=== PATIENT | female | born 1930 | race Asian ===

== ENCOUNTER 2016-04-29 16:00 | Inpatient (IN) | payer MEDICARE, OTHER ==
[~2016-04-29] VITALS: Ht 154.9 cm; Wt 53.7 kg
[2016-04-29 16:42] VITALS: BP 143/69
[2016-04-29 16:45] VITALS: BP 143/69
[2016-04-29] MEDS ORDERED: ACET-704 PO (17:38)
[2016-04-29] MEDS ORDERED: ALBU2.5V5 NEB (17:39)
[2016-04-29] MEDS ORDERED: CLOP75TA27 PO (17:40)
[2016-04-29] MEDS ORDERED: ALPR0.254 PO (17:40)
[2016-04-29] MEDS ORDERED: METF10002 PO (17:51)
[2016-04-29] MEDS ORDERED: LISI10TA2 PO (17:51)
[2016-04-29] MEDS ORDERED: INSU100C4 SQ (17:51)
[2016-04-29] MEDS ORDERED: NITR100C62 PO (17:52)
[2016-04-29] MEDS ORDERED: POLY17PO5 PO (17:53)
[2016-04-29] MEDS ORDERED: TRAM50TA PO (17:54)
[2016-04-29] MEDS ORDERED: TRAZ50TA15 PO (17:56)
[2016-04-29] MEDS ORDERED: FLUT1DIS IH (17:56)
[2016-04-29] MEDS ORDERED: METO50TA2 PO (17:57)
[2016-04-29] MEDS ORDERED: ALBUTEROL SULFATE 2.5 MG/3 ML NEBU. NEB PRN (18:00)
[2016-04-29] MEDS ORDERED: ACETAMINOPHEN/CODEINE 300/30MG TABLET PO PRN (18:00)
[2016-04-29 18:58] VITALS: BP 129/75
[2016-04-29] MEDS: ALBUTEROL SULFATE 2.5 MG/3 ML NEBU. NEB SCH (20:00)
[2016-04-29] MEDS ORDERED: BUDESONIDE 0.5 MG/2 ML NEBU NEB SCH (20:00)
[2016-04-29] MEDS: NITROFURANTOIN MONOHYD/M-CRYST 100 MG CAPSULE. PO SCH (20:10)
[2016-04-29] MEDS: METOPROLOL TART IMMED RELEASE 50 MG TABLET PO SCH (20:10)
[2016-04-29] MEDS: ALPRAZOLAM 0.25 MG TABLET PO PRN (20:10)
[2016-04-29] MEDS: TRAMADOL 50 MG TABLET. PO PRN (20:10)
[2016-04-29] MEDS: traZODone 50 MG TABLET. PO SCH (20:10)
[2016-04-29] MEDS ORDERED: NON FORMULARY ITEM (Fluticasone/Salmeterol (Advair 100-50 Diskus) 1 PUFF) IH SCH (21:00)
[2016-04-30 04:52] VITALS: BP 164/83
[2016-04-30] MEDS: ALBUTEROL SULFATE 2.5 MG/3 ML NEBU. NEB SCH ×4 (05:41→20:00)
[2016-04-30] MEDS ORDERED: NON FORMULARY ITEM (Insulin Aspart (Novolog) 1 UNIT) SQ SCH (07:30)
[2016-04-30] MEDS: INSULIN ASPART 300 UNITS/3 ML INSULN.PEN SQ SCH ×2 (07:52→12:00)
[2016-04-30] MEDS: METFORMIN 500 MG TABLET. PO SCH ×2 (09:13→16:11)
[2016-04-30] MEDS: POLYETHYLENE GLYCOL 3350 17 GM PACKET. PO SCH (09:13)
[2016-04-30] MEDS: TRAMADOL 50 MG TABLET. PO PRN (09:13)
[2016-04-30] MEDS: CLOPIDOGREL BISULFATE 75 MG TABLET PO SCH (09:13)
[2016-04-30] MEDS: NITROFURANTOIN MONOHYD/M-CRYST 100 MG CAPSULE. PO SCH (09:13)
[2016-04-30] MEDS: LIDOCAINE (700MG/PATCH) PATCH. TD SCH (09:14)
[2016-04-30] MEDS: LISINOPRIL 10 MG TABLET PO SCH (09:14)
[2016-04-30] MEDS: METOPROLOL TART IMMED RELEASE 50 MG TABLET PO SCH ×2 (09:14→19:56)
[2016-04-30] MEDS ORDERED: BUDESONIDE 0.5 MG/2 ML NEBU NEB PRN (09:30)
[2016-04-30] MEDS ORDERED: POLYETHYLENE GLYCOL 3350 17 GM PACKET. PO PRN (11:00)
[2016-04-30] MEDS: ACETAMINOPHEN 650 MG TABLET.ER PO SCH ×2 (13:23→19:55)
--- NOTE | 2016-04-30 15:58 | HP ---
ADMIT DATE: 04/30/2016 DETENTION SWING BED HISTORY AND PHYSICAL REASON FOR ADMISSION: HISTORY OF PRESENT ILLNESS: This is an 86-year-old female, who was transferred from [facility] after being admitted after sustaining a fall with right-sided fractures of fourth and fifth ribs. These were nondisplaced. The patient was in significant pain and has had some difficult with mobility since fracturing her ribs and is here for PT, OT and pain management. PAST MEDICAL HISTORY: Coronary artery disease, status post PCI, status post pacemaker for sick sinus syndrome, mild hypertension, cognitive impairment, diabetes. ALLERGIES: None. FAMILY HISTORY: She has a daughter with coronary artery disease. SOCIAL HISTORY: Nonsmoker alcohol. MEDICATIONS: Reviewed and reconciled by myself. REVIEW OF SYSTEMS: Positive for weakness, impaired mobility, right-sided pain, otherwise negative. OBJECTIVE: VITAL SIGNS: Blood pressure 164/83, pulse 60, respirations 16, pulse ox 95% on room air. Height 61 inches, weight 119.06 pounds. GENERAL: Frail elderly 86-year-old, who is in mild pain. Her hearing is slightly impaired. HEENT: Her eyes were clear. Her nose was patent. Her throat was clear. NECK: Supple. LUNGS: Clear to auscultation. CARDIOVASCULAR: Regular rhythm and rate. ABDOMEN: Soft, nontender. EXTREMITIES: Without edema. SKIN: The patient has large bruise on the right side of her forehead that is and the right sided area around the fourth and fifth ribs is bruised and very tender. IMAGING: CAT scan of the chest shows nondisplaced fourth and fifth rib fractures on the right. ASSESSMENT: 1. Status post mechanical fall with fourth and fifth rib fractures. 2. Weakness. 3. Coronary artery disease, status post PCI. 4. Status post pacemaker for sick sinus. 5. Mild hypertension. 6. Pain management. 7. Significant fall risk. 8. Physical disability. PLAN: Admit to swing bed and start rehab. We encouraged to do as much for herself. It will be slow process. I did spend about 30 minutes discussing her case with her as well as her daughter. LALO OWENS DO DR: RAMÍREZ/sandy JOB#: [id number] / [id number]
[2016-04-30] MEDS: ACETAMINOPHEN/CODEINE 300/30MG TABLET PO SCH (16:00)
[2016-04-30] MEDS: ONDANSETRON ODT 4 MG TAB.RAPDIS PO PRN (16:42)
[2016-04-30 18:25] VITALS: BP 155/75
[2016-04-30] MEDS: traZODone 50 MG TABLET. PO SCH (19:55)
[2016-04-30] MEDS: METHYL SALICYLATE/MENTHOL TOPICAL OINTMENT 29GM TUBE. TP SCH (20:02)
[2016-05-01] MEDS: ACETAMINOPHEN 650 MG TABLET.ER PO SCH ×3 (05:06→21:23)
[2016-05-01] MEDS: ALBUTEROL SULFATE 2.5 MG/3 ML NEBU. NEB SCH ×2 (08:00→12:00)
[2016-05-01] MEDS: LIDOCAINE (700MG/PATCH) PATCH. TD SCH (08:17)
[2016-05-01] MEDS: TRAMADOL 50 MG TABLET. PO PRN ×2 (08:17→11:50)
[2016-05-01] MEDS: METFORMIN 500 MG TABLET. PO SCH ×3 (08:18→17:12)
[2016-05-01] MEDS: CLOPIDOGREL BISULFATE 75 MG TABLET PO SCH (08:18)
[2016-05-01] MEDS: METOPROLOL TART IMMED RELEASE 50 MG TABLET PO SCH ×2 (08:18→20:10)
[2016-05-01] MEDS: POLYETHYLENE GLYCOL 3350 17 GM PACKET. PO SCH (08:19)
[2016-05-01] MEDS: LISINOPRIL 10 MG TABLET PO SCH (08:19)
[2016-05-01] MEDS: ACETAMINOPHEN/CODEINE 300/30MG TABLET PO SCH (08:19)
[2016-05-01 08:57] VITALS: BP 165/65
[2016-05-01] MEDS: ONDANSETRON ODT 4 MG TAB.RAPDIS PO PRN (08:58)
--- NOTE | 2016-05-01 13:10 | RAD ---
Abdomen, 2 views, 05/01/2016: History: Nausea and vomiting, right-sided pain after a fall Gas is present in scattered loops of large and small bowel without significant bowel distention. There are small scattered air-fluid levels. The appearance suggests a mild ileus. No free air is present in the abdomen. There is no evidence of organomegaly. Surgical clips are present in the right upper quadrant. Aortoiliac calcific plaquing is present. Moderate degenerative change is present in the spine. The visualized portions of the lung bases demonstrate a transvenous pacemaker with 2 leads extending into the heart. A coronary artery stent overlies the left side of the heart. There is blunting of the right lateral costophrenic angle compatible with a small amount of pleural fluid versus scarring. There is a fracture of the posterior aspect of the right sixth rib. IMPRESSION: 1. Scattered air-fluid levels in the GI tract suggesting a mild ileus. 2. Right sixth rib fracture. 3. Probable small right pleural effusion. 4. Chest radiographs are suggested for further evaluation, if not already performed elsewhere.
[2016-05-01] MEDS ORDERED: BISACODYL 10 MG SUPP.RECT PR PRN (13:45)
[2016-05-01 14:28] VITALS: BP 158/67
[2016-05-01] MEDS: traZODone 50 MG TABLET. PO SCH (20:09)
[2016-05-01] MEDS: METHYL SALICYLATE/MENTHOL TOPICAL OINTMENT 29GM TUBE. TP SCH (20:10)
[2016-05-01 20:23] VITALS: BP 140/83
[2016-05-02] MEDS: ACETAMINOPHEN 650 MG TABLET.ER PO SCH ×3 (05:32→21:05)
[2016-05-02 05:48] LABS: BASO % 0 % (0-3); EOS # 0.6 x10^3/uL (0.0-0.7); EOS % 7 % (0-3); HEMATOCRIT 29.7 % (36.0-47.0); HEMOGLOBIN 9.9 g/dL (12.0-15.5); LYMPH # 1.4 x10^3/uL (1.0-4.8); LYMPH % 15 % (24-48); MEAN CORPUSCULAR HEMOGLOBIN 28 pg (25-35); MEAN CORPUSCULAR HGB CONC 33 g/dL (31-37); MEAN CORPUSCULAR VOLUME 85 fL (79-100); MONO # 0.7 x10^3/uL (0.0-1.1); MONO % 8 % (0-9); NEUT # 6.3 x10^3uL (1.8-7.7); NEUT % 70 % (31-73); PLATELET COUNT 293 x10^3/uL (140-400); RED BLOOD COUNT 3.49 x10^6/uL (3.50-5.40); RED CELL DISTRIBUTION WIDTH 17.2 % (11.5-14.5); WHITE BLOOD COUNT 8.9 x10^3/uL (4.0-11.0)
[2016-05-02 06:02] LABS: ALBUMIN 2.6 g/dL (3.4-5.0); ALBUMIN/GLOBULIN RATIO 0.8 (1.0-1.7); CALCIUM 8.3 mg/dL (8.5-10.1); CREATININE 1.3 mg/dL (0.6-1.0); GFR 38.7; MAGNESIUM 1.9 mg/dL (1.8-2.4); POTASSIUM 4.1 mmol/L (3.5-5.1); TOTAL BILIRUBIN 0.4 mg/dL (0.2-1.0)
[2016-05-02] MEDS: METFORMIN 500 MG TABLET. PO SCH ×2 (08:00→17:00)
[2016-05-02 09:00] VITALS: BP 176/90
[2016-05-02] MEDS: POLYETHYLENE GLYCOL 3350 17 GM PACKET. PO SCH (09:03)
[2016-05-02] MEDS: LISINOPRIL 10 MG TABLET PO SCH (09:08)
[2016-05-02] MEDS: TRAMADOL 50 MG TABLET. PO PRN (09:09)
[2016-05-02] MEDS: METOPROLOL TART IMMED RELEASE 50 MG TABLET PO SCH ×2 (09:10→21:05)
[2016-05-02] MEDS: CLOPIDOGREL BISULFATE 75 MG TABLET PO SCH (09:11)
[2016-05-02] MEDS: LIDOCAINE (700MG/PATCH) PATCH. TD SCH (09:12)
[2016-05-02] MEDS: ALPRAZOLAM 0.25 MG TABLET PO PRN (12:30)
[2016-05-02 19:08] VITALS: BP 176/70
[2016-05-02] MEDS: METHYL SALICYLATE/MENTHOL TOPICAL OINTMENT 29GM TUBE. TP SCH (21:00)
[2016-05-02 21:03] VITALS: BP 154/66
[2016-05-02] MEDS: traZODone 50 MG TABLET. PO SCH (21:05)
[2016-05-03] MEDS: ACETAMINOPHEN 650 MG TABLET.ER PO SCH ×3 (05:39→23:28)
[2016-05-03 05:52] VITALS: BP 180/71
[2016-05-03] MEDS: LIDOCAINE (700MG/PATCH) PATCH. TD SCH (07:52)
[2016-05-03] MEDS: CLOPIDOGREL BISULFATE 75 MG TABLET PO SCH (07:52)
[2016-05-03] MEDS: METOPROLOL TART IMMED RELEASE 50 MG TABLET PO SCH ×2 (07:52→20:32)
[2016-05-03] MEDS: METFORMIN 500 MG TABLET. PO SCH ×2 (07:52→17:11)
[2016-05-03] MEDS: POLYETHYLENE GLYCOL 3350 17 GM PACKET. PO SCH (07:52)
[2016-05-03] MEDS: LISINOPRIL 10 MG TABLET PO SCH (07:53)
--- NOTE | 2016-05-03 11:56 | PDOC ---
PROGRESS NOTES Assessment 1. Status post mechanical fall with fourth and fifth rib fractures: Pt not getting adequate rosado relief, will try taking the tramadol again since she has been having BM's and maybe won't get as nauseated. 3. Coronary artery disease, status post PCI: Pt denies CP or SOA. 4. Status post pacemaker for sick sinus: Stable. 5. HTN: BP was in 170's this morning, pt's daughter states pt usually runs in 150's and they prefer her there. We suspect pt had BP measured after using bathroom, continue to monitor, and if stays high, will adjust BP meds. 6. Pain management: See above. 7. Significant fall risk. 8. Physical disability. 9. Moderate-severe PEM: Continue nutritional supplements. 10. DVT proph: Pt ambulating frequently. Low risk for DVT. 11. Anemia: Recheck Hgb in AM. Problems: Plan of Care: see other orders Subjective Pt seen on rounds w/ her family present. Pt still not getting pain relief. Bowels are moving better. Denies CP or SOA. Wearing lidocaine patch. Denies dizziness or JOLLEY. Objective Vital Signs Date Time Temp Pulse Resp B/P Pulse Ox O2 Delivery O2 Flow Rate FiO2 05/03/16 08:00 Room Air 05/03/16 07:53 60 180/71 05/03/16 05:52 98.4 20 96 Intake and Output 05/03/16 07:00 Intake Total 1800 ml Balance 1800 ml Intake Oral 1800 ml # Voids 7 # Bowel Movements 3 Abdomen: Normal bowel sounds, Soft, No tenderness Heart: Regular rate, Normal S1, Normal S2 Extremities: No edema General: Alert, Cooperative, No acute distress HEENT: PERRLA, EOMI, Mucous membr. moist/pink Lungs: Clear to auscultation, Normal air movement Neck: No JVD Neuro: Normal tone, Other (No focal neurologic abnormalities.) Skin: No rashes (mild swelling noted in area of rib injury, no sign of infection. Likely small hematoma.) Review of Relevant I have reviewed the following items kwan (where applicable) has been applied. Labs Laboratory Tests Test 05/02/16 05:32 05/02/16 08:50 05/03/16 07:17 White Blood Count 8.9x10^3/uL (4.0-11.0) Red Blood Count 3.49x10^6/uL (3.50-5.40) Hemoglobin 9.9g/dL (12.0-15.5) Hematocrit 29.7% (36.0-47.0) Mean Corpuscular Volume 85fL (79-100) Mean Corpuscular Hemoglobin 28pg (25-35) Mean Corpuscular Hemoglobin Concent 33g/dL (31-37) Red Cell Distribution Width 17.2% (11.5-14.5) Platelet Count 293x10^3/uL (140-400) Neutrophils (%) (Auto) 70% (31-73) Lymphocytes (%) (Auto) 15% (24-48) Monocytes (%) (Auto) 8% (0-9) Eosinophils (%) (Auto) 7% (0-3) Basophils (%) (Auto) 0% (0-3) Neutrophils # (Auto) 6.3x10^3uL (1.8-7.7) Lymphocytes # (Auto) 1.4x10^3/uL (1.0-4.8) Monocytes # (Auto) 0.7x10^3/uL (0.0-1.1) Eosinophils # (Auto) 0.6x10^3/uL (0.0-0.7) Basophils # (Auto) 0.0x10^3/uL (0.0-0.2) Sodium Level 136mmol/L (136-145) Potassium Level 4.1mmol/L (3.5-5.1) Chloride Level 100mmol/L (98-107) Carbon Dioxide Level 29mmol/L (21-32) Anion Gap 7 (6-14) Blood Urea Nitrogen 15mg/dL (7-20) Creatinine 1.3mg/dL (0.6-1.0) Estimated GFR (Cockcroft-Gault) 38.7 BUN/Creatinine Ratio 12 (6-20) Glucose Level 98mg/dL (70-99) Calcium Level 8.3mg/dL (8.5-10.1) Magnesium Level 1.9mg/dL (1.8-2.4) Total Bilirubin 0.4mg/dL (0.2-1.0) Aspartate Amino Transf (AST/SGOT) 37U/L (15-37) Alanine Aminotransferase (ALT/SGPT) 65U/L (14-59) Alkaline Phosphatase 139U/L (46-116) Total Protein 6.0g/dL (6.4-8.2) Albumin 2.6g/dL (3.4-5.0) Albumin/Globulin Ratio 0.8 (1.0-1.7) Glucose (Fingerstick) 114mg/dL (70-99) 83mg/dL (70-99) Medications Current Medications Acetaminophen/ Codeine Phosphate (Tylenol #3) 1 tab PRN Q4HRS PRN PO PAIN Last administered on 04/30/16 11:47; Start 04/29/16 at 18:00; Stop 04/30/16 at 16:00 ; Status DC Albuterol Sulfate (Ventolin) 2.5 mg PRN Q6HRS PRN NEB SHORTNESS OF BREATH; Start 04/29/16 at 18:00 Alprazolam (Xanax) 0.25 mg PRN DAILY PRN PO ANXIETY Last administered on 12:30; Start 04/29/16 at 18:00 Clopidogrel Bisulfate (Plavix) 75 mg DAILY PO Last administered on 05/03/16 07 :52; Start 04/30/16 at 09:00 Lisinopril (Prinivil) 10 mg DAILY PO Last administered on 05/03/16 07:53; Start 04/30/16 at 09:00 Metoprolol Tartrate (Lopressor) 50 mg BID PO Last administered on 05/03/16 07: 52; Start 04/29/16 at 21:00 Nitrofurantoin Macrocrystals (Macrobid) 100 mg BID PO Last administered on 04/30 09:13; Start 04/29/16 at 21:00; Stop 04/30/16 at 10:01; Status DC Polyethylene Glycol (miraLAX) 17 gm DAILY PO Last administered on 05/03/16 07: 52; Start 04/30/16 at 09:00 Tramadol HCl (Ultram) 50 mg PRN Q6HRS PRN PO PAIN Last administered on 09:09; Start 04/29/16 at 18:00 Trazodone HCl (Desyrel) 50 mg QHS PO Last administered on 05/02/16 21:05; Start 04/29/16 at 21:00 Non-Formulary Medication 1 puff BID IH ; Start 04/29/16 at 21:00; Stop 04/29/16 at 21:00; Status DC Non-Formulary Medication 1 unit TIDBFRMEAL SQ ; Start 04/30/16 at 07:30; Stop at 07:30; Status DC Metformin HCl (Glucophage) 1,000 mg BIDWMEALS PO Last administered on 07:52; Start 04/30/16 at 08:00 Insulin Aspart (Novolog) 0-5 UNITS TIDWMEALS SQ ; Start 04/30/16 at 08:00; Stop 04/30/16 at 12:20; Status DC Budesonide (Pulmicort) 0.5 mg RTBID NEB Last administered on 04/29/16 20:00; Start 04/29/16 at 20:00; Stop 04/30/16 at 09:25; Status DC Albuterol Sulfate (Ventolin) 2.5 mg RTQID NEB Last administered on 04/30/16 05 :41; Start 04/29/16 at 20:00; Stop 05/01/16 at 16:28; Status DC Lidocaine (Lidoderm) 1 patch DAILY TD Last administered on 05/03/16 07:52; Start 04/30/16 at 09:15 Budesonide (Pulmicort) 0.5 mg PRN BID PRN NEB wheezing; Start 04/30/16 at 09:30 Acetaminophen (Tylenol Arthritis) 650 mg Q8HRS PO Last administered on 05:39; Start 04/30/16 at 14:00 Polyethylene Glycol (miraLAX) 17 gm PRN DAILY PRN PO CONSTIPATION; Start at 11:00 Multi-Ingredient Ointment (Analgesic [place]) 1 lilia HS TP Last administered on 21:00; Start 04/30/16 at 21:00 Acetaminophen/ Codeine Phosphate (Tylenol #3) 1 tab BID94 PO Last administered on 05/01/16 08:19; Start 04/30/16 at 16:00; Stop 05/01/16 at 16:24; Status DC Ondansetron HCl (Zofran Odt) 4 mg PRN Q6HRS PRN PO NAUSEA/VOMITING Last administered on 05/01/16 08:58; Start 04/30/16 at 16:30 Bisacodyl (Dulcolax Supp) 10 mg PRN DAILY PRN SC CONSTIPATION Last administered on 05/01/16 13:56; Start 05/01/16 at 13:45 Active Scripts Active Reported Metoprolol Tartrate 50 Mg Tablet 1 Tab PO BID Advair 100-50 Diskus (Fluticasone/Salmeterol) 1 Each Disk.w.dev 1 Puff IH BID Trazodone Hcl 50 Mg Tablet 1 Tab PO QHS Tramadol Hcl (Tramadol HCl) 50 Mg Tablet 50 Mg PO PRN Q6HRS PRN Miralax (Polyethylene Glycol 3350) 17 Gm Powd.pack 1 Packet PO DAILY Macrobid 100 Mg Capsule (Nitrofurantoin Monohyd/M-Cryst) 100 Mg Capsule 1 Cap PO BID 4 Days Metformin Hcl 1,000 Mg Tablet 1 Tab PO BIDWMEALS Lisinopril 10 Mg Tablet 1 Tab PO DAILY Novolog (Insulin Aspart) 100 Unit/1 Ml Cartridge 1 Unit SQ TIDBFRMEAL Plavix (Clopidogrel Bisulfate) 75 Mg Tablet 1 Tab PO DAILY Alprazolam 0.25 Mg Tablet 1 Tab PO DAILY PRN Albuterol Sulfate Neb Soln (Albuterol Sulfate) 2.5 Mg/3 Ml Vial.neb 2.5 Mg NEB PRN Q6HRS PRN Tylenol With Codeine #3 Tablet (Acetaminophen With Codeine) 1 Each Tablet 1 Each PO PRN Q4HRS PRN Vitals/I & O Vital Sign - Last 24 Hours 05/02/16 05/02/16 05/02/16 05/02/16 19:08 19:30 21:03 21:05 Temp 98.7 Pulse 60 62 62 Resp 20 20 B/P 176/70 154/66 154/66 Pulse Ox 96 95 O2 Delivery Room Air Room Air Room Air 05/03/16 05/03/16 05/03/16 05/03/16 05:52 07:52 07:53 08:00 Temp 98.4 Pulse 60 60 60 Resp 20 B/P 180/71 180/71 180/71 Pulse Ox 96 O2 Delivery Room Air Room Air Intake and Output 05/02/16 05/02/16 05/03/16 15:00 23:00 07:00 Intake Total 200 ml 850 ml 750 ml Balance 200 ml 850 ml 750 ml PRUDENCE LEMUS MD May 03, 2016 11:56
[2016-05-03] MEDS: TRAMADOL 50 MG TABLET. PO PRN (12:36)
[2016-05-03 19:00] VITALS: BP 162/78
[2016-05-03] MEDS: METHYL SALICYLATE/MENTHOL TOPICAL OINTMENT 29GM TUBE. TP SCH (20:32)
[2016-05-03] MEDS: traZODone 50 MG TABLET. PO SCH (20:32)
[2016-05-04] MEDS: TRAMADOL 50 MG TABLET. PO PRN ×3 (01:30→16:07)
[2016-05-04 05:25] VITALS: BP 185/93
[2016-05-04] MEDS: ACETAMINOPHEN 650 MG TABLET.ER PO SCH ×3 (06:38→19:21)
[2016-05-04] MEDS: LIDOCAINE (700MG/PATCH) PATCH. TD SCH (08:06)
[2016-05-04] MEDS: METFORMIN 500 MG TABLET. PO SCH ×2 (08:07→16:07)
[2016-05-04] MEDS: METOPROLOL TART IMMED RELEASE 50 MG TABLET PO SCH ×2 (08:07→19:21)
[2016-05-04] MEDS: POLYETHYLENE GLYCOL 3350 17 GM PACKET. PO SCH (08:07)
[2016-05-04] MEDS: CLOPIDOGREL BISULFATE 75 MG TABLET PO SCH (08:08)
[2016-05-04] MEDS: LISINOPRIL 10 MG TABLET PO SCH (08:09)
[2016-05-04 19:17] VITALS: BP 188/78
[2016-05-04] MEDS: traZODone 50 MG TABLET. PO SCH (19:21)
[2016-05-04] MEDS: METHYL SALICYLATE/MENTHOL TOPICAL OINTMENT 29GM TUBE. TP SCH (19:21)
[2016-05-05] MEDS: ONDANSETRON ODT 4 MG TAB.RAPDIS PO PRN (04:26)
[2016-05-05] MEDS: ACETAMINOPHEN 650 MG TABLET.ER PO SCH (04:26)
[2016-05-05 04:38] VITALS: BP 185/79
[2016-05-05] MEDS: POLYETHYLENE GLYCOL 3350 17 GM PACKET. PO SCH (09:09)
[2016-05-05] MEDS: LIDOCAINE (700MG/PATCH) PATCH. TD SCH (09:09)
[2016-05-05] MEDS: METOPROLOL TART IMMED RELEASE 50 MG TABLET PO SCH (09:10)
[2016-05-05] MEDS: METFORMIN 500 MG TABLET. PO SCH (09:10)
[2016-05-05] MEDS: CLOPIDOGREL BISULFATE 75 MG TABLET PO SCH (09:10)
[2016-05-05] MEDS: TRAMADOL 50 MG TABLET. PO PRN (09:10)
[2016-05-05] MEDS: LISINOPRIL 10 MG TABLET PO SCH (09:10)
[2016-05-05 10:14] VITALS: BP 179/82
[2016-05-05] MEDS ORDERED: ONDA4TAB10 SL (13:30)
[2016-05-05] MEDS ORDERED: LIDO700A4 TP (13:43)
--- NOTE | 2016-05-05 20:11 | DS ---
DATE OF DISCHARGE: 05/05/2016 HOSPITAL COURSE: The patient is an 86-year-old [place] Portuguese female patient who apparently has fallen at home sustaining right-sided fracture of the 4th and right 5th ribs. She was evaluated at [facility] and from there she was transferred to [facility] to be on a swing bed to continue with pain management as well as physical and occupational therapy. She did well, has been ambulating with a walker. Her pain was little bit controlled. The patient insisted that she wants to go home and has not been participating with physical and occupational therapy. PHYSICAL EXAMINATION: GENERAL: When I saw her this afternoon, she was resting slightly propped up in bed, pale, but no jaundice, cyanosis, or thyromegaly. No jugular venous distention. No limb edema. VITAL SIGNS: Her heart rate was 64, blood pressure was 79/82, temperature was 98.3, respiratory rate was 16 and oxygen saturation was 99%. HEAD, EYES, EARS, NOSE AND THROAT: Showed normocephalic, atraumatic. NECK: Supple. HEART: Showed normal first and second heart sounds with no gallop, rub or murmur. CHEST: Clear to auscultation. No crepitation or rhonchi. ABDOMEN: Slightly distended, soft, nontender. No guarding or rigidity. No organomegaly. Hernial orifices intact. Bowel sounds normal. NEUROLOGIC: She was seen to be demented; however, she has no localizing sign. All her cranial nerves intact. She moves extremities without difficulty. She apparently ambulates with a walker with minimal assistance. Her intake over the last 24 hours was 1100, no output was recorded. LABORATORY DATA: Her most recent lab work showed a white cell count of 8900, hemoglobin 10, hematocrit 30, MCV 85 and platelet count 293,000. Her chemistry showed a serum sodium 136, potassium 4.1, chloride 100, bicarbonate 29, anion gap of 7, BUN 15, creatinine 1.3, estimated GFR was ____mL per minute. Her glucose was 98, calcium was 8.3, magnesium was 1.9. Total bilirubin, AST, ALT normal. Alkaline phosphatase slightly elevated. Her total protein was 6, albumin was 2.6. DISCHARGE MEDICATIONS: The patient was discharged home to continue on Zofran 4 mg ODT tablets one tablet every 6 hours, albuterol sulfate 2.5 mg/3 mL by nebulizer every 6 hours, alprazolam 0.25 mg daily for anxiety, Plavix 75 mg once a day, Advair Diskus 100/50 one puff twice a day. She is on NovoLog insulin before meals and lisinopril 10 mg once a day, metformin 1000 mg twice a day before meals, metoprolol 50 mg twice a day, polyethylene glycol 17 grams 1 packet daily, tramadol 50 mg every 6 hours as needed, trazodone 50 mg at bedtime. I did start her also on Marinol 2.5 mg capsule twice a day, and Lidoderm patch topically on for 12 hours and off for 12 hours. FINAL DISCHARGE DIAGNOSES: Mechanical fall with 4th and 5th rib fracture that is nondisplaced, coronary artery disease status post PCI, sick sinus syndrome, status post permanent pacemaker, hypertension, type 2 diabetes mellitus, moderate to severe protein calorie malnutrition with serum albumin is only 2.2, anemia that is normochromic normocytic. PIERRE JOSUE MD DR: HARISH/sandy JOB#: [id number] / [id number]
== END 2016-05-05 14:12 | disposition home health service (06) | DRG 183 ==
LOC: 1 SOUTH 16:00
PROVIDERS: ADMIT Family Medicine; ATTEND Family Medicine
DX: S22.41XA Multiple fractures of ribs, right side, initial encounter for closed fracture (principal); E43 Unspecified severe protein-calorie malnutrition; W19.XXXA Unspecified fall, initial encounter; E11.9 Type 2 diabetes mellitus without complications; D64.9 Anemia, unspecified; I10 Essential (primary) hypertension; I25.10 Atherosclerotic heart disease of native coronary artery without angina pectoris; I49.5 Sick sinus syndrome; Y92.009 Unspecified place in unspecified non-institutional (private) residence as the place of occurrence of the external cause; Z91.81 History of falling; Y93.89 Activity, other specified; Y99.8 Other external cause status; Z95.0 Presence of cardiac pacemaker; Z98.61 Coronary angioplasty status; Z68.22 Body mass index [BMI] 22.0-22.9, adult
CPT/HCPCS: 36415; 74020; 80053; 82947; 83735; 85018; 85027; 94640; J1815; J7613; J7626; Q0162; 97110; 97116; 97530; 97535

== ENCOUNTER → 2017-08-11 | Outpatient (CLI) | payer MEDICARE, OTHER ==
[~2017-08-11] MED LIST: ACET-704 PO; ALBU2.5V5 NEB; ALPR0.254 PO; CLOP75TA57 PO; FLUT1DIS IH; INSU100C4 SQ; LIDO700A4 TP; LISI10TA2 PO; METF10003 PO; METO50TA6 PO; NITR100C62 PO; ONDA4TAB10 SL; POLY17PO5 PO; TRAM50TA PO; TRAZ-85 PO
--- NOTE | 2017-08-11 16:44 | CARD ---
MR#: [id number] Date of Study: 08/11/2017 Ordering Physician: MICHELLE MORALES, Referring Physician: MICHELLE MORALES, Tech: BLAISE Sales APPROVED REPORT EXAM: Two-dimensional and M-mode echocardiogram with Doppler and color Doppler. Other Information Quality : Average INDICATION Dyspnea 2D DIMENSIONS Left Atrium(2D)2.9 (1.6-4.0cm)IVSd1.3 (0.7-1.1cm) Aortic Root(2D)2.6 (2.0-3.7cm)LVDd4.5 (3.9-5.9cm) LVOT Diameter2.2 (1.8-2.4cm)PWd1.1 (0.7-1.1cm) LVDs3.7 (2.5-4.0cm)FS (%) 33.0 % SV36.4 mlLVEF(%)63.0 (>50%) Aortic Valve AoV Peak Chong.172.1cm/[place] Peak GR.11.9mmHg LVOT Peak Chong.75.9cm/sAVA (VMAX)1.67cm2 Mitral Valve MV E Wjfevrsw05.8cm/sMV E Peak Gr.6mmHg MV DECEL [id number] A Afedcuun538.2cm/s MV E Mean Gr.2mmHgE/A Ratio0.8 Tricuspid Valve TR P. [id number]/sRAP [id number] TR Peak Gr.[id number] LEFT VENTRICLE The left ventricle is normal size. There is mild concentric left ventricular hypertrophy. The left ve ntricular systolic function is normal. The Ejection Fraction is 60-65%. There is normal LV segmental wall motion. Transmitral Doppler flow pattern is Grade I-abnormal relaxation pattern. RIGHT VENTRICLE The right ventricle is normal size. There is normal right ventricular wall thickness. The right ventr icular systolic function is normal. There is a pacemaker lead in the right ventricle. ATRIA The left atrium size is normal. The right atrium size is normal. There is a pacemaker lead seen in th e right atrium. The interatrial septum is intact with no evidence for an atrial septal defect or dumont nt foramen ovale as noted on 2-D or Doppler imaging. AORTIC VALVE The aortic valve is trileaflet. The aortic valve is mildly to moderately sclerotic. Doppler and Color Flow revealed mild aortic regurgitation. There is no significant aortic valvular stenosis. MITRAL VALVE The mitral valve leaflets are thickened. Mitral annular calcification is moderate. There is no mitral valve stenosis. Doppler and Color-flow revealed mild mitral regurgitation. TRICUSPID VALVE Doppler and Color Flow revealed mild to moderate tricuspid regurgitation. There is mild to moderate p ulmonary hypertenison. PASP is 44 mmHg. There is no tricuspid valve stenosis. PULMONIC VALVE The pulmonic valve is not well visualized. Doppler and Color Flow revealed no pulmonic valvular regur gitation. There is no pulmonic valvular stenosis. GREAT VESSELS The aortic root is normal in size. The IVC is normal in size and collapses >50% with inspiration. PERICARDIAL EFFUSION There is no pleural effusion. There is no evidence of significant pericardial effusion. Critical Notification Critical Value: No <Conclusion> The left ventricular systolic function is normal. The Ejection Fraction is 60-65%. There is normal LV segmental wall motion. Transmitral Doppler flow pattern is Grade I-abnormal relaxation pattern. There is a pacemaker lead seen in the right atrium and right ventricle. Mild mitral regurgitation. Mild aortic regurgitation. Mild to moderate tricuspid regurgitation. There is mild to moderate pulmonary hypertenison. PASP is 44 mmHg. There is no evidence of significant pericardial effusion. Signed by : Gonsalo Evangelista, Electronically Approved : 08/11/2017 16:43:53
== END | disposition home or self-care (01) ==
LOC: ECHO 13:39
PROVIDERS: ATTEND Internal Medicine Cardiovascular Disease
DX: I08.3 Combined rheumatic disorders of mitral, aortic and tricuspid valves (principal); I10 Essential (primary) hypertension; E11.9 Type 2 diabetes mellitus without complications; D64.9 Anemia, unspecified
CPT/HCPCS: 93306

== ENCOUNTER → 2019-02-28 | Outpatient (CLI) | payer MEDICARE, OTHER ==
[~2019-02-28] MED LIST changes: -METF10003 PO; +METF10007 PO; +TRAZ-120 PO; -TRAZ-85 PO
--- NOTE | 2019-02-28 23:58 | RAD ---
PA and lateral chest. HISTORY: Cough, congestion, weakness PA and lateral views were taken of the chest. There are old right rib fractures. There is mild arthritis in the right shoulder. There is a pacemaker on the left with atrial and ventricular pacing leads. There are no acute infiltrates. There is no pleural effusion. IMPRESSION: 1. No acute infiltrates. Electronically signed by: Franklin Evans MD (02/28/2019 11:55 PM) [id number]
== END | disposition home or self-care (01) ==
LOC: RAD 17:50
PROVIDERS: ATTEND Registered Nurse
DX: R06.09 Other forms of dyspnea (principal); M19.011 Primary osteoarthritis, right shoulder
CPT/HCPCS: 71046